=== PATIENT | female | born 1990 | race Caucasian/White ===

== ENCOUNTER 2021-12-12 12:52 | Emergency (ER) | payer OTHER ==
--- OUTSIDE RECORDS SUMMARY | 2021-12-12 12:55 | XMS REPORT | Continuity of Care Document ---
:1990 Author Organization [facility] t Address [address] [place] [address] Care Team Providers Name Role Phone HANNA UP Attending Clinician Unavailable SEGUN FELIX Attending Clinician Unavailable LAMIN WILLIAMSON Attending Clinician Unavailable Lamin Williamson Attending Clinician Payers Payer Name Policy Type Policy Number Effective Date Expiration Date Dov tucker [facility] MEDICAID STAR [id number] 2020 2024 00:00:00 00:00:00 Problems Condition Condition Condition Status Onset Resolution Last Treating Co mments Source Name Details Category Date Date Treatment Clinician Date Rectal Rectal Disease Active 2020-05 [facility] bleeding bleeding 08 [facility] 00:00: 00 Anal Anal Disease Active 2020-05 [facility] fissure fissure 0-12 [facility] 00:00: 00 Abdominal Abdominal Disease Active 2020-05 [facility] pain pain 0-06 [facility] 00:00: 00 Constipati Constipati Disease Active 2020-05 U T on on 0-06 Health 00:00: 00 Obesity Obesity Disease Active 2020-05 [facility] (BMI (BMI 0-06 Health 30-39.9) 30-39.9) 00:00: 00 Allergies, Adverse Reactions, Alerts This patient has no known allergies or adverse reactions. Social History Social Habit Start Date Stop Date Quantity Comments Source Exposure to Not sure [facility] SARS-CoV-2 (event) Alcohol intake 2021-03-11 2021-03-11 0 /d [facility] 00:00:00 00:00:00 Tobacco use and 2021-02-05 2021-02-05 Smokeless tobacco [facility] exposure 00:00:00 00:00:00 non-user Sex Ass[birth year] At [birth year] F [facility] 00:00:00 00:00:00 Smoking Status Start Date Stop Date Source Tobacco smoking consumption unknown [facility] Never smoked tobacco [facility] Medications Ordered Filled Start Stop Current Ordering Indication Dosage Frequency Signature Comments Components Source Medication Medication Date Date Medication? Clinician (SIG) Name Name lidocaine 2020-05- No [id number] Apply [facility] (Xylocaine) 03-15 [id number] topically Health 5 % 00:00: 05:59 3D 3 (three) ointment 00 :00 times a day. No known 2020-05 No No known [facility] medications 0-06 medication He alth 11:32: s 39 No known 2020-05 No No known [facility] medications 0-06 medication He alth 11:32: s 39 amphetamine Yes TAKE 1 UT -dextroamph 9-10 TABLET Health etamine 00:00: EVERY (Adderall) 00 MORNING AT 20 MG LUNCH AND tablet AT 4PM amphetamine Yes TAKE 1 UT -dextroamph 9-10 TABLET Health etamine 00:00: EVERY (Adderall) 00 MORNING AT 20 MG LUNCH AND tablet AT 4PM amphetamine Yes TAKE 1 UT -dextroamph 9-10 TABLET Health etamine 00:00: EVERY (Adderall) 00 MORNING AT 20 MG LUNCH AND tablet AT 4PM OXcarbazepi Yes 600mg Take 600 U T ne 9-08 mg by Health (Trileptal) 00:00: mouth 600 MG 00 every tablet night. OXcarbazepi 2020- Yes 150mg Take 150 U T ne 9-08 mg by Health (Trileptal) 00:00: mouth 1 150 MG 00 (one) time tablet each day in the morning. OXcarbazepi 2020-0 Yes 600mg Take 600 U T ne 9-08 mg by Health (Trileptal) 00:00: mouth 600 MG 00 every tablet night. OXcarbazepi Yes 150mg Take 150 U T ne 9-08 mg by Health (Trileptal) 00:00: mouth 1 150 MG 00 (one) time tablet each day in the morning. OXcarbazepi Yes 600mg Take 600 U T ne 9-08 mg by Health (Trileptal) 00:00: mouth 600 MG 00 every tablet night. OXcarbazepi Yes 150mg Take 150 U T ne 9-08 mg by Health (Trileptal) 00:00: mouth 1 150 MG 00 (one) time tablet each day in the morning. ALPRAZolam Yes [facility] XR (Xanax 3-11 Health XR) 1 MG 24 00:00: hr tablet ALPRAZolam Yes [facility] XR (Xanax 3-11 Health XR) 1 MG 24 00:00: hr tablet ALPRAZolam Yes UT XR (Xanax 3-11 Health XR) 1 MG 24 00:00: hr tablet 00 valACYclovi 2013-05 Yes valacyclov UT r (Valtrex) 0-05 ir 500 mg Hea lth 500 MG 00:00: tablet tablet 00 valACYclovi 2013-05 Yes valacyclov UT r (Valtrex) 0-05 ir 500 mg Hea lth 500 MG 00:00: tablet tablet 00 valACYclovi 2013-05 Yes valacyclov UT r (Valtrex) 0-05 ir 500 mg Hea lth 500 MG 00:00: tablet tablet 00 sertraline 2004-05 Yes sertraline U T (Zoloft) 0-05 100 mg Health 100 MG 00:00: tablet tablet 00 sertraline 2004-05 Yes sertraline U T (Zoloft) 0-05 100 mg Health 100 MG 00:00: tablet tablet 00 sertraline 2004-05 Yes sertraline U T (Zoloft) 0-05 100 mg Health 100 MG 00:00: tablet tablet 00 Vital Signs Vital Name Observation Time Observation Value Comments Source Systolic blood pressure 2021-03-11 16:36:00 149 mm[Hg] [facility] Diastolic blood pressure 2021-03-11 16:36:00 92 mm[Hg] [facility] Heart rate 2021-03-11 16:36:00 76 /min [facility] Body temperature 2021-03-11 16:36:00 37 [facility] Body height 2021-03-11 16:36:00 162.6 cm [facility] Body weight 2021-03-11 16:36:00 96.163 kg [facility] BMI 2021-03-11 16:36:00 36.39 kg/m2 [facility] Systolic blood pressure 2021-02-06 16:32:00 145 mm[Hg] [facility] Diastolic blood pressure 2021-02-06 16:32:00 95 mm[Hg] [facility] Heart rate 2021-02-06 16:32:00 70 /min [facility] Body temperature 2021-02-06 16:32:00 36.06 [facility] Body height 2021-02-06 16:32:00 162.6 cm [facility] Body weight 2021-02-06 16:32:00 94.802 kg [facility] BMI 2021-02-06 16:32:00 35.87 kg/m2 [facility] Procedures Procedure Date / Time Performed Performing Clinician Sour e EXTERNAL EKG 2020-10-11 12:24:48 System, Provider Not In [facility] EXTERNAL EKG 2020-10-11 12:24:48 System, Provider Not In [facility] Encounters Start End Encounter Admission Attending Care Care Encounter Source Date/Time Date/Time Type Type Clinicians Facility Department ID 2021-11-06 Inpatient [facility] [id number] [facility] 11:31:14 [id number] [place] 2021-02-06 Outpatient HANNA UP [facility] [id number] [place] 12:00:18 Health 2017-12-[address] [facility] 12:09:00 2017-11-23 Inpatient E [facility]2 [facility] 08:35:00 2021-03-11 2021-03-11 Office HANNA UP [facility] [id number] [place] 10:26:01 10:41:01 Visit [id number] [facility] [id number] N[facility] [id number] BUILDING 1 2 2021-02-06 2021-02-06 Office Hanna Up [facility] [id number] [place] 10:13:07 10:28:07 Visit [place] [id number] H [facility]I [id number] [facility] [id number] [facility] 1 2 2020-10-18 2020-10-19 Emergency [facility] [id number] [facility] 22:09:00 01:19:00 2020-10-11 2020-10-11 Outpatient [facility] [id number] [facility] 06:27:00 10:05:00 SREEKRISSANJAYA 2020-10-11 2020-10-[address] [facility] Donemissael, EXT [facility] [id number] [place] 00:00:00 00:00:[address] [facility] LOCATION [id number] Health [facility] [id number] 2020-10-11 2020-10-[address] [facility] OP Donemissael, EXT [facility] [id number] [place] 00:00:00 00:00:00 [facility] LOCATION [id number] Health [facility] [id number] Results This patient has no known results.
[2021-12-12 13:40] LABS: Urine Blood Trace-intact (Negative); Urine Glucose Negative (Negative); Urine Protein Negative (Negative); Urine pH 8.5 (5.0-7.0)
[2021-12-12] MEDS ORDERED: DIPHENHYDRAMINE 50 MG/ML VIAL ONE (13:53)
[2021-12-12] MEDS ORDERED: KETOROLAC 30 MG/ML INJ ONE (13:54)
[2021-12-12] MEDS ORDERED: NA CHLORIDE 0.9% 1,000 ML ONE (13:54)
[2021-12-12] MEDS ORDERED: dexAMETHasone 10 MG/ML VIAL ONE (14:01)
[2021-12-12 14:05] LABS: Urine Bacteria <20 /HPF (<20); Urine RBC <5 /HPF (None Seen)
[2021-12-12 14:10] LABS: Absolute Lymphocytes (CBC) 5.5 K/uL (0.7-4.9); Hematocrit 39.6 % (36.0-45.0); Lymphocytes % 45.1 % (15.3-44.8); MCV 89.7 fL (80-100); MPV 7.4 fL (7.6-11.3); RBC Red Blood Cell Count 4.41 M/uL (3.86-4.86)
--- NOTE | 2021-12-12 15:53 | RAD REPORT ---
EXAM DESCRIPTION: CT - Head angio - 12/12/2021 3:43 pm CLINICAL HISTORY: vascular wallace Headache, drowsiness COMPARISON: No comparisons TECHNIQUE: CT angiography of the head was performed with MIPs. All CT scans are performed using dose optimization technique as appropriate and may include automated exposure control or mA/KV adjustment according to patient size. FINDINGS: No evidence of aneurysm is detected. No flow-limiting stenosis or vascular malformation id entified. Antegrade flow is seen in the vertebral arteries. The vertebral arteries are codominant. The visualized dural venous sinuses are patent. IMPRESSION: No significant flow abnormality is detected.
--- NOTE | 2021-12-12 15:58 | EDPHYS ---
Physician Documentation [facility] Name: Urszula Schwarz Age: 31 yrs Sex: Female : 1990 Arrival Date: 12/12/2021 Time: 12:54 Bed 5 Private MD: ED Physician Orestes Taylor HPI: 12/12 13:41 This 31 yrs old Female presents to ER via Ambulatory with complaints of Headache. snw 13:41 The patient complains of pain to the right eye. The patient describes the headache as snw aching, a pressure. Onset: The symptoms/episode began/occurred gradually, 4 day(s) ago, and became persistent. Associated signs and symptoms: Pertinent positives: orthostatic dizziness, told at one time that she had a dilated vessel in her brain, pt states she is concerned that there may be something wrong. Severity of symptoms: At its worst the pain was moderate. Headache History: The patient has had previous headaches and this one is different than previous episodes. The patient has experienced similar episodes in the past. The patient has not recently seen a physician. 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 - Social history:: Smoking status: Patient/guardian denies using alcohol, tobacco products. ROS: 13:39 Constitutional: Negative for fever, chills, and weight loss, ENT: Negative for injury, snw pain, and discharge, Neck: Negative for injury, pain, and swelling, Cardiovascular: Negative for chest pain, palpitations, and edema, Respiratory: Negative for shortness of breath, cough, wheezing, and pleuritic chest pain, Abdomen/GI: Negative for abdominal pain, nausea, vomiting, diarrhea, and constipation, Back: Negative for injury and pain, : Negative for injury, bleeding, discharge, and swelling, MS/Extremity: Negative for injury and deformity, Skin: Negative for injury, rash, and discoloration. 13:39 Eyes: Positive for tearing, right eye for several months. 13:39 Neuro: Positive for headache, of the right eye. Exam: 13:39 Constitutional: This is a well developed, well nourished patient who is awake, alert, snw and in no acute distress. Head/Face: Normocephalic, atraumatic. Eyes: Pupils equal round and reactive to light, extra-ocular motions intact. Lids and lashes normal. Conjunctiva and sclera are non-icteric and not injected. Cornea within normal limits. Periorbital areas with no swelling, redness, or edema. ENT: Nares patent. No nasal discharge, no septal abnormalities noted. Tympanic membranes are normal and external auditory canals are clear. Oropharynx with no redness, swelling, or masses, exudates, or evidence of obstruction, uvula midline. Mucous membranes moist. Neck: Trachea midline, no thyromegaly or masses palpated, and no cervical lymphadenopathy. Supple, full range of motion without nuchal rigidity, or vertebral point tenderness. No Meningismus. Chest/axilla: Normal chest wall appearance and motion. Nontender with no deformity. No lesions are appreciated. Cardiovascular: Regular rate and rhythm with a normal S1 and S2. No gallops, murmurs, or rubs. Normal PMI, no JVD. No pulse deficits. Respiratory: Lungs have equal breath sounds bilaterally, clear to auscultation and percussion. No rales, rhonchi or wheezes noted. No increased work of breathing, no retractions or nasal flaring. Abdomen/GI: Soft, non-tender, with normal bowel sounds. No distension or tympany. No guarding or rebound. No evidence of tenderness throughout. Back: No spinal tenderness. No costovertebral tenderness. Full range of motion. Skin: Warm, dry with normal turgor. Normal color with no rashes, no lesions, and no evidence of cellulitis. MS/ Extremity: Pulses equal, no cyanosis. Neurovascular intact. Full, normal range of motion. Neuro: Awake and alert, GCS 15, oriented to person, place, time, and situation. Cranial nerves II-XII grossly intact. Motor strength 5/5 in all extremities. Sensory grossly intact. Cerebellar exam normal. Normal gait. Psych: Awake, alert, with orientation to person, place and time. Behavior, mood, and affect are within normal limits. Vital Signs: 13:10 BP 100 / 76; Pulse 78; Resp 16; Temp 97.8; Pulse Ox 100% on R/A; Weight 86.18 kg (R); bm7 Height 5 ft. 4 in. (162.56 cm); Pain 7/10; 14:36 BP 111 / 70; Pulse 68; Resp 17; Pulse Ox 100% on R/A; tw2 16:00 BP 105 / 73; Pulse 74; Resp 17; Pulse Ox 100% on R/A; tw2 13:10 Body Mass Index 32.61 (86.18 kg, 162.56 cm) bm7 Aly Coma Score: 15:58 Eye Response: spontaneous(4). Verbal Response: oriented(5). Motor Response: obeys snw commands(6). Total: 15. MDM: 13:24 Patient medically screened. snw 15:58 Data reviewed: vital signs, nurses notes, lab test result(s), radiologic studies. snw Counseling: I had a detailed discussion with the patient and/or guardian regarding: the historical points, exam findings, and any diagnostic results supporting the discharge/admit diagnosis, lab results, radiology results, to return to the emergency department if symptoms worsen or persist or if there are any questions or concerns that arise at home. Response to treatment: the patient's symptoms have markedly improved after treatment, pain down to 4/10. Special discussion: Based on the history and exam findings, there is no indication for further emergent testing or inpatient evaluation. I discussed with the patient/guardian the need to see the neurologist for further evaluation of the symptoms. I discussed with the patient/guardian the need to see the primary care provider for further evaluation of the symptoms. 12/12 13:26 Order name: SARS-COV-2 RT PCR (Document "Date of Onset" if Symptomatic); Complete Time: snw 15:12/12 13:26 Order name: Flu; Complete Time: 14:19 snw 12/12 13:26 Order name: Strep; Complete Time: 14:19 snw 12/12 13:26 Order name: Urine Microscopic Only; Complete Time: 14:14 snw 12/12 13:39 Order name: CBC with Diff; Complete Time: 14:14 snw 12/12 13:39 Order name: Chem 7; Complete Time: 14:56 snw 12/12 13:41 Order name: Urine Dipstick-Ancillary; Complete Time: 13:43 EDMS 12/12 13:41 Order name: Urine --Ancillary (enter results); Complete Time: 13:54 eb 12/12 14:18 Order name: Throat Culture EDIL 12/12 14:58 Order name: CT Head Angio; Complete Time: 15:55 snw 12/12 13:26 Order name: Urine Test (obtain specimen); Complete Time: 13:44 snw Administered Medications: 13:50 Drug: NS 0.9% 1000 ml Route: IV; Rate: 1 bolus; Site: right antecubital; tw2 15:14 Follow up: Response: No adverse reaction; IV Status: Completed infusion; IV Intake: tw2 1000ml 13:51 Not Given (Patient Refused; "diarrhea and makes me feel faint"): Ketorolac 30 mg IVP tw2 once 13:55 Drug: Benadryl (diphenhydrAMINE) 12.5 mg Route: IVP; Site: right antecubital; tw2 15:14 Follow up: Response: No adverse reaction tw2 13:57 Drug: Decadron - Dexamethasone 10 mg Route: IVP; Site: right antecubital; tw2 15:13 Follow up: Response: No adverse reaction; Pain is decreased tw2 Disposition: 21:05 Co-signature as Attending Physician, Orestes ROACH was immediately available on-site ms3 in the Emergency Department for consultation in the care of the patient. . Disposition Summary: 12/12/21 15:57 Discharge Ordered Location: Home snw Condition: Stable snw Diagnosis - Headache snw Followup: snw - With: Emergency Department - When: As needed - Reason: Worsening of condition Followup: snw - With: Private Physician - When: 2 - 3 days - Reason: Recheck today's complaints, Continuance of care, Re-evaluation by your physician Discharge Instructions: - Discharge Summary Sheet snw - General Headache Without Cause snw - Migraine Headache snw - Rehydration, Adult snw - Form - Headache Record snw Forms: - Medication Reconciliation Form snw - Thank You Letter snw - Antibiotic Education snw - Prescription Opioid Use snw - Work release form iw Prescriptions: - orphenadrine citrate 100 mg Oral Tablet Sustained Release - take 1 tablet by ORAL route 2 times per day As needed; 20 tablet; Refills: 0, snw Product Selection Permitted - promethazine 25 mg Oral Tablet - take 1 tablet by ORAL route every 6 hours As needed; 20 tablet; Refills: 0, snw Product Selection Permitted Signatures: Dispatcher [employer] EDCarole Davis FNP-C [employer]-Cs[employer] Hermelinda Muñoz, RN RN tw2 Orestes Taylor DO DO ms3 Lisa Tony, RN RN bm7
--- NOTE | 2021-12-12 15:58 | ER ---
Nurse's Notes [facility] Name: Urszula Schwarz Age: 31 yrs Sex: Female : 1990 Arrival Date: 12/12/2021 Time: 12:54 Bed 5 Private MD: Diagnosis: Headache Presentation: 12/12 13:12 Chief complaint: Patient states: I have had a really bad headache for the last three bm7 days and it hurts so bad its starting to hurt behind my eyes. Coronavirus screen: Vaccine status: Patient reports receiving the 2nd dose of the covid vaccine. Patient reports receiving the 1st dose of the Covid vaccine. Ebola Screen: No symptoms or risks identified at this time. Initial Sepsis Screen: Does the patient meet any 2 criteria? No. Patient's initial sepsis screen is negative. Does the patient have a suspected source of infection? No. Patient's initial sepsis screen is negative. Risk Assessment: Do you want to hurt yourself or someone else? Patient reports no desire to harm self or others. Onset of symptoms was December 09, 2021. 13:12 Method Of Arrival: Ambulatory 7 13:12 Acuity: CHARLES 3 bm7 Triage Assessment: 13:13 Headache History: The patient has had previous headaches and this one is more severe bm7 than previous episodes. General: Appears in no apparent distress. comfortable, well groomed, well developed, well nourished, Behavior is calm, cooperative, appropriate for age. Pain: Complains of pain in forehead Pain radiates to right eye Pain currently is 5 out of 10 on a pain scale. Quality of pain is described as sharp, shooting, Pain began 2-3 days ago. Also complains of decreased appetite, nausea, photophobia. EENT: No deficits noted. No signs and/or symptoms were reported regarding the EENT system. Neuro: Level of Consciousness is awake, alert, obeys commands, Oriented to person, place, time, situation, Minister Helper are equal bilaterally Moves all extremities. Gait is steady, Speech is normal, Facial symmetry appears normal, Pupils are PERRLA. Cardiovascular: No deficits noted. Respiratory: No deficits noted. GI: No deficits noted. No signs and/or symptoms were reported involving the gastrointestinal system. : No deficits noted. No signs and/or symptoms were reported regarding the genitourinary system. Derm: No deficits noted. No signs and/or symptoms reported regarding the dermatologic system. Musculoskeletal: No deficits noted. No signs and/or symptoms reported regarding the musculoskeletal system. 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 - Social history:: Smoking status: Patient/guardian denies using alcohol, tobacco products. Screenin:00 Abuse screen: Denies threats or abuse. Nutritional screening: No deficits noted. tw2 Tuberculosis screening: No symptoms or risk factors identified. Fall Risk None identified. Assessment: 13:30 General: Appears comfortable, Behavior is calm, cooperative. Pain: Complains of pain in aa5 forehead Pain radiates to right eye and left eye Pain currently is 7 out of 10 on a pain scale. Quality of pain is described as pressure, throbbing, Pain began 2-3 days ago. Is continuous. Neuro: Level of Consciousness is awake, alert, obeys commands, Oriented to person, place, time, situation. Cardiovascular: Heart tones S1 S2 present Rhythm is regular. Respiratory: Airway is patent Respiratory effort is even, unlabored, Respiratory pattern is regular, symmetrical. GI: Abdomen is round non-distended, Bowel sounds present X 4 quads. Abd is soft and non tender X 4 quads. Patient currently denies nausea, vomiting. : No signs and/or symptoms were reported regarding the genitourinary system. EENT: No signs and/or symptoms were reported regarding the EENT system. Derm: Skin is pink, warm \\T\\ dry. Musculoskeletal: Range of motion: intact in all extremities. 14:36 Reassessment: Patient appears in no apparent distress at this time. No changes from tw2 previously documented assessment. Patient and/or family updated on plan of care and expected duration. Pain level reassessed. Patient is alert, oriented x 3, equal unlabored respirations, skin warm/dry/pink. 15:30 Reassessment: Patient is alert, oriented x 3, equal unlabored respirations, skin aa5 warm/dry/pink. Patient states feeling better. Patient states symptoms have improved. Pt back from CT scan . 16:00 Reassessment: Patient appears in no apparent distress at this time. No changes from tw2 previously documented assessment. Patient and/or family updated on plan of care and expected duration. Pain level reassessed. Patient is alert, oriented x 3, equal unlabored respirations, skin warm/dry/pink. 16:09 Reassessment: Patient appears in no apparent distress at this time. No changes from tw2 previously documented assessment. Patient and/or family updated on plan of care and expected duration. Pain level reassessed. Patient is alert, oriented x 3, equal unlabored respirations, skin warm/dry/pink. Vital Signs: 13:10 BP 100 / 76; Pulse 78; Resp 16; Temp 97.8; Pulse Ox 100% on R/A; Weight 86.18 kg (R); bm7 Height 5 ft. 4 in. (162.56 cm); Pain 7/10; 14:36 BP 111 / 70; Pulse 68; Resp 17; Pulse Ox 100% on R/A; tw2 16:00 BP 105 / 73; Pulse 74; Resp 17; Pulse Ox 100% on R/A; tw2 13:10 Body Mass Index 32.61 (86.18 kg, 162.56 cm) bm7 Aly Coma Score: 15:58 Eye Response: spontaneous(4). Verbal Response: oriented(5). Motor Response: obeys snw commands(6). Total: 15. ED Course: 12:54 Patient arrived in ED. mr 12:57 Daniel Carole, [facility] snw 12:57 Orestes Taylor DO is Attending Physician. snw 13:13 Triage completed. bm7 13:13 Arm band placed on left wrist. bm7 13:16 Bed in low position. Call light in reach. Adult w/ patient. Pulse ox on. NIBP on. Warm tw2 blanket given. 13:44 Flu Sent. tw2 13:44 Urine Microscopic Only Sent. tw2 13:44 Strep Sent. tw2 13:51 Gisel Jay, RN is Primary Nurse. aa5 13:52 Inserted saline lock: 20 gauge in right antecubital area, using aseptic technique. tw2 ,using aseptic technique. KJ, Tech Blood collected. 15:45 CT Head Angio In Process Unspecified. EDMS 16:08 No provider procedures requiring assistance completed. IV discontinued, intact, tw2 bleeding controlled, No redness/swelling at site. Pressure dressing applied. Administered Medications: 13:50 Drug: NS 0.9% 1000 ml Route: IV; Rate: 1 bolus; Site: right antecubital; tw2 15:14 Follow up: Response: No adverse reaction; IV Status: Completed infusion; IV Intake: tw2 1000ml 13:51 Not Given (Patient Refused; "diarrhea and makes me feel faint"): Ketorolac 30 mg IVP tw2 once 13:55 Drug: Benadryl (diphenhydrAMINE) 12.5 mg Route: IVP; Site: right antecubital; tw2 15:14 Follow up: Response: No adverse reaction tw2 13:57 Drug: Decadron - Dexamethasone 10 mg Route: IVP; Site: right antecubital; tw2 15:13 Follow up: Response: No adverse reaction; Pain is decreased tw2 Medication: 16:00 VIS not applicable for this client. tw2 Intake: 15:14 IV: 1000ml; Total: 1000ml. tw2 Outcome: 15:57 Discharge ordered by . [email or web address] 16:09 Discharged to home ambulatory, with significant other. tw2 16:09 Condition: stable 16:09 Discharge instructions given to patient, significant other, Instructed on discharge instructions, follow up and referral plans. no drinking with medication, no driving heavy equipment, medication usage, Demonstrated understanding of instructions, follow-up care, medications, Prescriptions given X 2. 16:09 Patient left the ED. tw2 Signatures: Dispatcher [employer] [facility] Carole Sanchez, JOY OPERATOR-C JOY OPERATOR-Csnw Magdalena Liu, Gisel, RN RN aa5 Hermelinda Muñoz RN RN tw2 Lisa Tony, RN RN bm7 Yaneli Yanes, SOFIA RN ha1 Corrections: (The following items were deleted from the chart) 13:53 13:19 Yaneli Yanes RN is Primary Nurse. ha1 aa5 13:53 13:51 Primary Nurse role handed off by Yaneli Yanes RN aa5 aa5 18:46 16:00 Reassessment: Patient states feeling better. Patient states symptoms have aa5 improved. Pt back from CT scan . aa5
[2021-12-12 17:23] VITALS: TEMP 97.8; O2SAT 100
[2021-12-12 17:28] VITALS: BP 105/73
== END 2021-12-12 16:09 | disposition home or self-care (01) ==
LOC: ER 12:52
DX: R51.9 Headache, unspecified (principal); Z20.822 Contact with and (suspected) exposure to COVID-19
CPT/HCPCS: 96361; 87070; 85025; 80048; 36415; 81025; 87081; 87804 ×2; 70496; 96375; 96374; 99284; U0003; Q9967; J1200; J1100; J7030; 81003; 81015